=== PATIENT | male | born 1980 | race Caucasian/White ===

== ENCOUNTER 2019-07-22 03:30 | Emergency (ER) | payer SELFPAY ==
--- NOTE | ~2019-07-22 | XR_ITS ---
EXAMINATION: XR hand LT min 3V DATE: 07/22/2019 04:14 INDICATION: Left hand pain post injury TECHNIQUE: Posteroanterior, oblique and lateral views of the left hand were obtained. COMPARISON: None. FINDINGS: Comminuted intra-articular fracture at the base of the left fifth metacarpal. The proximal articular surface appears to be into 2 fragments with dorsal angulation of the smaller more dorsal/ul howie sided fragment resulting in widening of the fracture plane distally and approximately 1-2 mm step -off at the articular surface. The distal fragment which extends to the metadiaphysis is displaced ap proximately 3 mm dorsal/ulnar with mild palmar/radial angulation no other fractures identified. [place] joint spaces are normal. Soft tissue swelling at the ulnar side of the hand. IMPRESSION: 1. Comminuted intra-articular fracture at the base of the left fifth metacarpal with mild displacemen t and angulation. Reviewed, dictated and finalized at location A. IMPRESSION: 1. Comminuted intra-articular fracture at the base of the left fifth metacarpal with mild displacement and angulation.
[2019-07-22 03:35] VITALS: BP 169/119; PULSE 115; RESP 19; TEMP 36.4; O2SAT 100
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
[2019-07-22] MEDS: IBUPROFEN 600 MG TABLET PO (04:37)
[2019-07-22 04:50] VITALS: BP 154/99; PULSE 98; RESP 19; O2SAT 100
[2019-07-22 05:06] VITALS: BP 155/97; PULSE 99; RESP 20; TEMP 36.2; O2SAT 100
== END 2019-07-22 05:07 | disposition home or self-care (01) ==
PROVIDERS: Emergency Provider Emergency Medicine; PCP Emergency Medicine
DX: S62.317A Displaced fracture of base of fifth metacarpal bone, left hand, initial encounter for closed fracture (principal); K21.9 Gastro-esophageal reflux disease without esophagitis; F17.200 Nicotine dependence, unspecified, uncomplicated; W22.8XXA Striking against or struck by other objects, initial encounter
CPT/HCPCS: 29125; 73130; 99284; A4565; A9270

== ENCOUNTER 2019-08-03 00:43 | Outpatient (CLI) | payer OTHER, SELFPAY ==
[2019-08-03 18:39] LABS: SARS-CoV-2 RNA PCR Negative
== END 2019-08-03 00:44 | disposition home or self-care (01) ==
LOC: ANHCOVIDDT 00:44
PROVIDERS: PCP Emergency Medicine; Visit Provider Plastic Surgery
DX: Z01.818 Encounter for other preprocedural examination (principal); Z11.59 Encounter for screening for other viral diseases
CPT/HCPCS: 87635; C9803; U0003

== ENCOUNTER 2019-08-03 13:30 | Outpatient (CLI) | payer SELFPAY ==
--- NOTE | 2019-08-03 13:34 | ECG_ITS ---
Measurements Intervals [place] Rate: 84 P: 57 NE: 139 QRS: 17 QRSD: 106 T: 41 QT: 361 QTc: 427 Interpretive Statements SINUS RHYTHM DELAYED PRECORDIAL R/S TRANSITION BORDERLINE ECG Electronically Signed On 08-03-2019 13:59:36 CDT by Dinesh Ruelas D.O.
== END 2019-08-03 13:31 | disposition home or self-care (01) ==
LOC: ANHSURGERY 13:33
PROVIDERS: PCP Emergency Medicine; Visit Provider Plastic Surgery
DX: Z01.810 Encounter for preprocedural cardiovascular examination (principal); Z87.891 Personal history of nicotine dependence
CPT/HCPCS: 93005

== ENCOUNTER 2019-08-05 01:05 | Day surgery (SDC) | payer SELFPAY ==
[2019-08-02 10:45] VITALS: BMI 30.8
--- NOTE | 2019-08-04 19:17 | HP_ITS ---
DATE OF SERVICE: 08/05/2019 PREOPERATIVE DIAGNOSIS: Displaced intra-articular fracture base of the left 5th metacarpal. HISTORY: The patient is 39. He is referred from [facility] where he was seen on 07/22/2019 for the above fracture. The fractures indicate angulation and displacement at the base of the 5th metacarpal, and internal fixation has been recommended to him. The fracture is intra-articular and the shaft is slightly medially displaced and palmarly angulated. The patient is aware that internal fixation should allow him earlier range of motion and hopefully pain-free range of motion. He is willing to undergo this. He is aware that there are risks of infection, scarring, nerve injury, and poor healing, and he would like to proceed. ALLERGIES: INDICATES THAT HE HAS NO KNOWN ALLERGIES TO MEDICATION. MEDICATIONS: Takes no chronic medications right now. PAST SURGICAL HISTORY: He has a history of tonsillectomy in 1987. SOCIAL HISTORY: He is a smoker. He lives in [place]. He works for [employer]. REVIEW OF SYSTEMS: Indicates some gastric reflux. FAMILY HISTORY: Noncontributory. PHYSICAL EXAMINATION: GENERAL: He is 5 feet 10 inches, 215 pounds. He is informative and cooperative. HEENT: Unremarkable. CHEST: Clear to auscultation. HEART: Regular rate and rhythm by palpation. ABDOMEN: Soft and nontender. EXTREMITIES: Appeared normal except for the exam around the base of the left 5th metacarpal which is tender, swollen, and somewhat stiffened. ASSESSMENT: Displaced fracture, left 5th metacarpal base. PLAN: Open reduction, internal fixation under general anesthesia. D I MT: Nahum
[2019-08-05] VITALS (8 sets, daily range): BP systolic 119–148; BP diastolic 71–95; PULSE 74–91; RESP 15–20; TEMP 37.1–37.2; O2SAT 95–98
--- NOTE | ~2019-08-05 | XR_ITS ---
EXAMINATION: XR surgery orthopedic DATE: 08/05/2019 13:41 INDICATION: Left fifth metacarpal fracture. TECHNIQUE: 4 intraoperative fluoroscopic views of left hand were obtained. I was not present. Fluoros copy exposure time was 2 minutes 2 seconds. COMPARISON: Left hand radiographs 07/22/2019 FINDINGS: There is a comminuted fracture of base of fifth metacarpal. The main distal fracture fragme nt demonstrates near-anatomic alignment status post open reduction internal fixation with a screw. 2 percutaneous pins pass through the fourth and fifth metacarpals. IMPRESSION: 1. Comminuted fracture of base of fifth metacarpal status post open reduction internal fixation. Reviewed, dictated and finalized at location A. IMPRESSION: 1. Comminuted fracture of base of fifth metacarpal status post open reduction i nternal fixation.
--- NOTE | 2019-08-05 08:14 | WPDHPUPDATE1 ---
History and Physical Update Update Date/Time: 08/05/19 08:14 History and Physical has been reviewed, including an updated exam of the patient. There are NO changes in the patient's condition. Risks, benefits, and alternatives have been discussed and questions answered. Patient agrees to proceed with procedure.
[2019-08-05] MEDS: LACTATED RINGERS 1,000 ML 30 ML IV CONT ×2 (10:40→13:52)
--- NOTE | 2019-08-05 11:02 | P.PNAN_ITS ---
Anes - Initial Pre Proc Eval Procedure: Operation Date: 08/05/19 12:00 Proposed Procedures p Open Reduction Internal Fixation Displaced Left Fifth Metacarpal Base Fracture - Serjio Shabazz MD Date/Time: 08/05/19 11:02 Surgeon: Serjio Shabazz MD Pre Op Diagnosis: diplaced fracture of the left metacarpal base Patient Data Age: 39 Gender: M Height: 5 ft 10 in Weight: 95.7 kg Last Vital Signs Temp 37.2 C 08/05/19 10:30 Pulse 85 08/05/19 10:30 BP 148/91 H 08/05/19 10:30 Pulse Ox 98 08/05/19 10:30 Allergies Allergy/AdvReac Type Severity Reaction Status Date / Time No Known Allergies Allergy Verified 08/02/19 10:47 Home Medications Medication Instructions Recorded Confirmed Type hydrocodone-acetaminophen [[place]] 1 tablet PO Q4H PRN 08/02/19 08/05/19 History Patient hx anesthesia problems: none Family hx anesthesia problems: none PMFSH Past Medical History Medical History Anxiety GERD (gastroesophageal reflux disease) Surgical History Surgical History History of tonsillectomy Social History Social History Smoking status: Current every day smoker Alcohol intake: current Gender identity (if verbalized by the patient): Male Anes - Eval Final PreProcedure Day of Procedure 08/05/19 11:02 Patient weight: obese Heart: regular rate and rhythm Lungs: decreased breath sounds Airway: Mallampati scale class II Neurological: alert and oriented Last oral intake: >/= 8 hours ASA classification: III Emergent: no Anesthetic plan: proceed Anesthesia type and monitoring: general LMA and standard monitoring Informed Consent: The patient's anesthetic plan and its attendant risks and benefits were discussed with the patient/family/POA. Questions were solicited and answers provided to the satisfaction of the patient/family/POA.
[2019-08-05] MEDS: ceFAZolin 2 GM/D5W 50 ML 2 GM/50 ML BAG IVPB (12:05)
[2019-08-05] MEDS: LIDO 1%/EPINEPHRINE 1:100,000 20 ML VIAL INFILTRATE (13:20)
--- NOTE | 2019-08-05 13:40 | P.OPB_ITS ---
Procedure Note - Brief Procedure Note - Brief Date of procedure: 08/05/19 Pre-op diagnosis: diplaced fracture of the left metacarpal base Post-op diagnosis: same Procedure performed: ORIF comminuted left 5th metacarpal base fx with c-wire x2 and 1.5 x 10 mm Mod Hand screw. Anesthesia: GLMA Surgeon: Serjio Shabazz MD [employer] Furnace Installer: Shane Estimated blood loss (mL): 5 Tourniquet time (min): 64 Drains: No Packing: No Pathology: none sent Complications: No immediate complications Condition: stable Disposition: PACU
[2019-08-05] MEDS: BUPIVACAINE/EPINEPHRINE 0.5% 10 ML VIAL INFILTRATE (13:43)
--- NOTE | 2019-08-05 13:54 | PM.PROC ---
Procedure Note - Detailed Date of procedure: 08/05/19 Pre-op diagnosis: diplaced fracture of the left metacarpal base Post-op diagnosis: same Procedure performed: Open reduction with internal fixation of comminuted fracture left 5th metacarpal base Description of procedure: The left 5th metacarpal area was marked on the patient as the weighted holding area. He was rolled to the operating room and placed supine on the operating table. A time-out was held and confirmed. He was given general anesthesia with an LMA and the extremity was prepped and draped in the usual fashion. C-arm images were taken to confirm the fracture characteristics. This area was marked for incision over the lateral aspect of the of 5th metacarpal. This area was infiltrated with 1% lidocaine with epinephrine. The tourniquet was inflated to 250 mmHg. The incision was made and the dissection was carried to the 5th metacarpal lateral to the extensor tendons. The fracture site was identified and debrided and exposed on 3 sides. Organized clot was removed from the fracture site. The reduction was carried out with the use of a Roseannaon brown reduction forceps. The 3rd he had 1 instance. A single bicortical 1.5 x 11 mm screw was placed vertically. These were all confirmed by C-arm. [place] were added as local anesthetic and a soft bandage was applied te stabilization was achieved. Motion at the 5th carpometacarpal joint will be allowed by this fixation. The 2 C wires were cut beneath skin level and pigtailed. None impinge on the tendons. The wound was closed with a running intradermal 3-0 Vicryl 10 cc of 0.5% Marcaine plain was added to the local anesthetic. A soft bandage with elastic wrap was applied. He is being discharged home with instructions in wound care and follow-up he has a prescription for oxycodone 5/325 number 12. He received 2 g of Ancef preop Surgeon: Serjio Shabazz MD
--- NOTE | 2019-08-05 14:23 | SUR.PHASEI ---
1423 - pt's family called and [facility] dr. collado talking with family via phone.
== END 2019-08-05 15:55 | disposition home or self-care (01) ==
PROVIDERS: PCP Emergency Medicine; Visit Provider Plastic Surgery
PROC: (CPT 26615; principal; 2019-08-05 12:00)
DX: S62.317A Displaced fracture of base of fifth metacarpal bone, left hand, initial encounter for closed fracture (principal); F17.200 Nicotine dependence, unspecified, uncomplicated; E66.9 Obesity, unspecified; Z68.30 Body mass index [BMI] 30.0-30.9, adult; X58.XXXA Exposure to other specified factors, initial encounter
CPT/HCPCS: 26615; A9270; C1713; J0690; J1100; J2250; J2405; J2704; J3010; J7120

== ENCOUNTER 2019-10-05 00:50 | Outpatient (CLI) | payer OTHER, SELFPAY ==
[2019-10-05 19:35] LABS: SARS-CoV-2 RNA PCR Negative
== END 2019-10-05 00:51 | disposition home or self-care (01) ==
PROVIDERS: PCP Emergency Medicine; Visit Provider Plastic Surgery
DX: Z01.812 Encounter for preprocedural laboratory examination (principal); Z11.59 Encounter for screening for other viral diseases
CPT/HCPCS: 87635; C9803; U0003

== ENCOUNTER 2019-10-07 01:51 | Day surgery (SDC) | payer SELFPAY ==
[2019-09-27 13:02] VITALS: BMI 30.8
--- NOTE | ~2019-10-07 | XR_ITS ---
XR surgery orthopedic DATE: 10/07/2019 09:03 INDICATION: C-Wire removal left fifth finger TECHNIQUE: 2 spot C-arm images 7 seconds fluoroscopy time 0.6432 cGycm2 total DAP COMPARISON: 08/05/2019 FINDINGS: Two C wires a screw overlie the base of the fifth metacarpal bone on one image. On a subsequent image there is one C wire and screw overlying the area. Reviewed, dictated and finalized at Location A. Reviewed, dictated and finalized at location B.
--- NOTE | 2019-10-07 06:23 | HP_ITS ---
DATE OF SERVICE: 10/06/2019 PREOPERATIVE DIAGNOSIS: Fracture of the base of the left 5th metacarpal. HISTORY: The patient is 39. He was referred from [facility] back on 07/22/2019 with an angulated displaced fracture of the base of the 5th metacarpal. He was operated on 08/05/2019 for reduction and fixation with C wires. He is coming now for removal of 2 C wires from his left hand. He also has a single bicortical screw. PAST MEDICAL HISTORY: MEDICATIONS: He takes no chronic medications. PAST SURGICAL HISTORY: He has had a tonsillectomy in 1987. SOCIAL HISTORY: He is a smoker. He lives in [place]. He works for [employer]. REVIEW OF SYSTEMS: Indicates he has some gastric reflux. FAMILY HISTORY: Noncontributory. PHYSICAL EXAMINATION: GENERAL: He is 5 feet 10 inches, weighs 215 pounds. He is informative and cooperative. HEENT: Unremarkable. CHEST: Clear to auscultation. HEART: Regular rate and rhythm by palpation. ABDOMEN: Soft, nontender. EXTREMITIES: Show the scars that are well healed. He has excellent range of motion. He has remained off work. ASSESSMENT: History of fracture, right 5th metacarpal. PLAN: Removal of 2 C wires traversing the 4th and 5th metacarpals. D I MT: Nahum
--- NOTE | 2019-10-07 07:09 | WPDHPUPDATE1 ---
History and Physical Update Update Date/Time: 10/07/19 07:09 History and Physical has been reviewed, including an updated exam of the patient. There are NO changes in the patient's condition. Risks, benefits, and alternatives have been discussed and questions answered. Patient agrees to proceed with procedure.
[2019-10-07] MEDS: LACTATED RINGERS 1,000 ML 30 ML IV CONT (07:10)
--- NOTE | 2019-10-07 07:34 | P.PNAN_ITS ---
Anes - Eval Final PreProcedure Day of Procedure 10/07/19 07:34 Patient weight: obese Heart: regular rate and rhythm Lungs: clear to auscultation Airway: Mallampati scale class II Neurological: alert and oriented Last oral intake: >/= 8 hours ASA classification: III Emergent: no Anesthetic plan: proceed Anesthesia type and monitoring: general GIVS and standard monitoring Informed Consent: The patient's anesthetic plan and its attendant risks and b enefits were discussed with the patient/family/POA. Questions were solicited and answers provided to the satisfaction of the patient/family/POA.
[2019-10-07] MEDS: LIDO 1%/EPINEPHRINE 1:100,000 20 ML VIAL 7 ML INFILTRATE (08:21)
--- NOTE | 2019-10-07 08:22 | SUR.PREOP ---
0864- SPOKE WITH NOMAN ESQUIVEL AND TOLD HIM PT HAD NAUSEA WITH LAST PROCEDURE IN AUGUST 2019
--- NOTE | 2019-10-07 08:56 | SUR.OPER ---
EBL:0cc
[2019-10-07 09:02] VITALS: BP 144/92; PULSE 90; RESP 14; O2SAT 97
--- NOTE | 2019-10-07 09:12 | PM.OP ---
Procedure Note - Brief Procedure Note - Brief Date of procedure: 10/07/19 Pre-op diagnosis: s/p ORIF left 5th metacarpal base Post-op diagnosis: same Procedure performed: Planned removal of 2 fixation c-wires left hand. Anesthesia: MAC Surgeon: Serjio Shabazz MD Estimated blood loss (mL): 1 Tourniquet time (min): 10 Packing: No Pathology: none sent Complications: No immediate complications Condition: stable Disposition: same day
--- NOTE | 2019-10-07 09:14 | PM.PROC ---
Procedure Note - Detailed Date of procedure: 10/07/19 Pre-op diagnosis: s/p ORIF left 5th metacarpal base Post-op diagnosis: same Procedure performed: Planned removal of to fixation C-wire from the left hand. Description of procedure: the site was marked as the patient waited in the holding area. He was taken to the operating room placed supine on the operating table. A time-out was held and confirmed. He was given sedation anesthetic. The C-arm was brought over the table and the appropriate site marked. This area was locally infiltrated with 1% lidocaine with epinephrine. A longitudinal incision was made on the ulnar hand. . The tourniquet was inflated to 250 mmHg. The incision was made as marked. Blunt dissection through scar tissue revealed the PIN and that were pigtail. These were retrieved with a needle webb without difficulty. The wound was closed with interrupted 5 0 nylon suture and a small bandage with Coban was applied the tourniquet was released. The patient is discharged home with instructions in wound care and follow-up a prescription for hydrocodone . Was sent by e- prescribing . Surgeon: Serjio Shabazz MD
[2019-10-07 09:30] VITALS: BP 127/85; PULSE 61; RESP 16
--- NOTE | 2019-10-07 13:35 | SUR.PHASEII ---
0945; PT AWAKE AND ALERT. DENIES PAIN OR NAUSEA. STATES HE IS READY TO GO HOME. MEETS DISCHARGE CRITERIA.
== END 2019-10-07 10:07 | disposition home or self-care (01) ==
PROVIDERS: PCP Emergency Medicine; Visit Provider Plastic Surgery
PROC: (CPT 20694; principal; 2019-10-07 08:30)
DX: Z47.2 Encounter for removal of internal fixation device (principal); S62.317D Displaced fracture of base of fifth metacarpal bone, left hand, subsequent encounter for fracture with routine healing
CPT/HCPCS: 20680; A9270; J2001; J2250; J2405; J2704; J3010; J7120

== ENCOUNTER 2024-07-28 18:36 | Emergency (ER) | payer OTHER, SELFPAY ==
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
[2024-07-28 18:54] VITALS: BP 164/93; PULSE 105; RESP 18; TEMP 37.2; O2SAT 99
== END 2024-07-28 19:57 | disposition home or self-care (01) ==
PROVIDERS: Emergency Provider Nurse Practitioner Family; PCP Emergency Medicine
DX: S39.012A Strain of muscle, fascia and tendon of lower back, initial encounter (principal); V43.62XA Car passenger injured in collision with other type car in traffic accident, initial encounter; S46.812A Strain of other muscles, fascia and tendons at shoulder and upper arm level, left arm, initial encounter; M25.512 Pain in left shoulder; F17.210 Nicotine dependence, cigarettes, uncomplicated; K21.9 Gastro-esophageal reflux disease without esophagitis
CPT/HCPCS: 72110; 73010; 99213; G0463